=== PATIENT | male | born 1990 | race Caucasian/White ===

== ENCOUNTER 2019-03-15 18:15 | Outpatient (RCR) | payer OTHER ==
[2019-03-15 19:01] LABS: SEMEN VOLUME 1.2 ML (1.5-5.0)
== END 2019-06-13 | disposition home or self-care (01) ==
LOC: LAB 18:15
PROVIDERS: ATTEND Obstetrics & Gynecology
DX: N46.9 Male infertility, unspecified (principal)
CPT/HCPCS: 89320